=== PATIENT | male | born 1960 ===

== ENCOUNTER 2020-03-28 16:17 | Inpatient (IN) ==
[2020-03-28] MEDS ORDERED: ASPIRIN 325 MG ENTERIC COATED TABLET PO ONE ×2 (16:27→17:24)
[2020-03-28] MEDS ORDERED: DEXAMETHASONE 10 MG/ML VIAL IV ONE (16:35)
--- NOTE | 2020-03-28 16:45 | Emergency Department Note ---
HPI General Chief complaint: Shortness of Breath/Dyspnea Stated complaint: Increasingly worse SOB Time Seen by Provider: 03/28/20 16:27 Source: patient Mode of arrival: ambulatory Limitations: no limitations History of Present Illness HPI Narrative: Narrative: 59-year-old patient presented with a history of symptoms consistent with upper respiratory infection that began several days ago. Associated symptoms include cough. Specific risk factors that I considered in this patient's case were hypertension, diabetes, pre-existing cardiovascular disease, and pre-existing pulmonary disease. Patient also reports concern for fever/myalgias. Symptoms are currently reported as mild to moderate in severity and gradual and progressive over the past couple of days. Is exacerbated with coughing/not sleeping well. It is alleviated by rest. Patient has not been seen for this recently. Patient has had current immunizations. Patient denies any sore throat, neck pain, chest pain, shortness of breath, abdominal pain, back pain, numbness or tingling in the extremities, skin rash, chills, vomiting, or diarrhea no other pain or complaints at this time. The patient reports symptoms are similar to previous flu/URI. Patient reports they do not have sick contacts. Patient reports they have not been tested for COVID19. Related Data Home Medications Medication Instructions Recorded Confirmed metoprolol tartrate 100 mg tablet 100 mg PO QDAY 06/27/19 06/27/19 Allergies Allergy/AdvReac Type Severity Reaction Status Date / Time No Known Drug Allergies Allergy Unverified 06/27/19 13:50 Review of Systems ROS ROS Narrative: Narrative: All systems ED: reviewed and negative except as stated. PFSH Narrative Patient History Narrative: Narrative: Non-smoker Obesity Hypertension Medical/Surgical/Family History All Active Problems (Updated 03/28/20 @ 21:31 by Tulio Henao MD) COVID-19 (Acute) Acute respiratory failure with hypoxia (Acute) Social History Smoking Status: Current every day smoker Exam Narrative Narrative: General: Alert, interactive, appropriate Head: Atraumatic, normocephalic Eyes: Extraocular movements intact, sclera anicteric, no conjunctival injection Ears: Pinnae normal, no discharge Mouth: Oral mucosa moist, no acute swelling or evidence of infection Nares: No nasal discharge, patent bilaterally Neck: Trachea midline, full range of motion Chest: Symmetrical chest wall rise, patient noted to be tachypneic as well as hypoxic on presentation requiring multiple liters of O2 Cardiovascular: Patient with excellent perfusion to the extremities; with ta chycardia Skin: Patient without area of erythema, patient is without rash, no ascending lymphangitis or lymphadenopathy Extremities: Full range of motion joints, no obvious deformities Neuro: Alert, oriented x3, cranial nerves II through XII grossly intact, patient without lateralizing findings such as weakness, or abnormal reflexes Psychiatric: Normal affect, normal mood General Limitations: no limitations Course Vital Signs Vital signs: Vital Signs Temperature 98.7 F 03/28/20 16:18 Pulse Rate 117 H 03/28/20 16:18 Respiratory Rate 20 03/28/20 16:18 Blood Pressure 123/98 03/28/20 16:18 Pulse Oximetry (%) 88 L 03/28/20 16:18 Temperature 97.0 F 03/28/20 20:42 Pulse Rate 91 H 03/28/20 20:42 Respiratory Rate 16 03/28/20 20:42 Blood Pressure 143/86 03/28/20 20:42 Pulse Oximetry (%) 90 03/28/20 20:42 MDM MDM Narrative Medical decision making narrative: This patient is presenting with symptoms and findings consistent with acute hypoxic respiratory failure. They are toxic in appearance, requiring 3 L of oxygen. They are not immunocompromised. The differential diagnosis also included COVID19. Full septic work-up obtained including chest x-ray, blood cultures, CBC CMP lactic acid. Patient given aspirin as well as Decadron in the emergency department and supplemental oxygen. Patient had rapid Covid test positive. Significant features of this case are I did not give him sepsis protocol secondary to suggestion of Covid and I do not want to volume overload someone that could potentially be going into ARDS. Also didn't want to reflexively give someone antibiotics when they have a viral infection. Patient with hypoxia and tachypnea on presentation. At this point patient requires admission to the hospital. Patient has agreed to this. I discussed the case with Dr. Momin and the consensus medical opinion is to admit. Lab Data Result diagrams: 03/28/20 16:41 03/28/20 16:41 Labs: Lab Results 03/28/20 03/28/20 03/28/20 Range/Units 16:41 16:41 16:41 WBC 9.6 (4.5-11.0) K/mcL RBC 5.36 (4.50-5.90) M/mcL Hgb 16.4 (13.5-16.5) g/dL Hct 46.3 (41.0-55.0) % MCV 86.4 (80.0-100.0) fL MCH 30.6 (26.0-34.0) pg MCHC 35.4 (31.0-36.0) g/dL RDW 12.4 (11.5-14.5) % Plt Count 250 (140-440) K/mcL MPV 10.5 H (7.4-10.4) fL Neut % (Auto) 83.7 H (38.0-78.0) % Lymph % (Auto) 10.2 L (15.0-49.0) % Grimes % (Auto) 5.6 (1.0-12.0) % Eos % (Auto) 0.2 (0.0-7.0) % Baso % (Auto) 0.3 (0.0-2.0) % Lymph # (Auto) 0.98 L (1.50-4.80) K/mcL Grimes # (Auto) 0.54 (0.10-0.90) K/mcL Eos # (Auto) 0.02 (0.00-0.70) K/mcL Baso # (Auto) 0.03 (0.00-0.20) K/mcL Absolute Neutrophils 8.04 H (1.80-8.00) K/mcL ABG Methemoglobin (0.4-1.5) % VBG pH (7.32-7.42) U VBG pCO2 (41.0-51.0) mmHg VBG pO2 (25.0-40.0) mmHg VBG HCO3 (24.0-28.0) mmol/L VBG Total CO2 (25.0-29.0) mmol/L VBG O2 Saturation (40.0-70.0) % VBG Base Excess (-2-3) VBG Lactic Acid 2.9 H (0.5-2.0) mmol/L Carboxyhemoglobin (0.0-1.5) % THgb Total Hemoglobin (13.5-16.5) gm/Dl Sodium 128 L (133-145) mmol/L Potassium 3.8 (3.3-5.1) mmol/L Chloride 96 (96-108) mmol/L Carbon Dioxide 17 L (22-30) mmol/L Anion Gap 15.0 (8.0-16.0) BUN 20 (6-20) mg/dL Creatinine 1.1 (0.7-1.2) mg/dL POC Creatinine 1.1 (0.6-1.2) mg/dL GFR Calculation 72 Glucose 153 H (70-105) mg/dL Calcium 8.8 (8.6-10.4) mg/dL Ferritin (30.0-400.0) ng/mL Total Bilirubin 0.8 (0.1-1.0) mg/dL AST 54 H (<40) U/L ALT 62 H (<40) U/L Alkaline Phosphatase 53 (39-117) U/L Total Creatine Kinase (24-195) U/L Troponin T (<0.03) ng/mL C-Reactive Protein (0.03-0.80) mg/dL NT-Pro-B Natriuret Pep 28.6 (<125.0) pg/mL Total Protein 7.3 (5.9-8.4) gm/dL Albumin 3.7 (3.2-5.2) gm/dL Globulin 3.6 (2.2-3.7) gm/dL Albumin/Globulin Ratio 1.0 (1.0-2.3) SARS-CoV-2 (PCR) (Negative) 03/28/20 03/28/20 03/28/20 Range/Units 16:41 17:13 17:13 WBC (4.5-11.0) K/mcL RBC (4.50-5.90) M/mcL Hgb (13.5-16.5) g/dL Hct (41.0-55.0) % MCV (80.0-100.0) fL MCH (26.0-34.0) pg MCHC (31.0-36.0) g/dL RDW (11.5-14.5) % Plt Count (140-440) K/mcL MPV (7.4-10.4) fL Neut % (Auto) (38.0-78.0) % Lymph % (Auto) (15.0-49.0) % Grimes % (Auto) (1.0-12.0) % Eos % (Auto) (0.0-7.0) % Baso % (Auto) (0.0-2.0) % Lymph # (Auto) (1.50-4.80) K/mcL Grimes # (Auto) (0.10-0.90) K/mcL Eos # (Auto) (0.00-0.70) K/mcL Baso # (Auto) (0.00-0.20) K/mcL Absolute Neutrophils (1.80-8.00) K/mcL ABG Methemoglobin 0 L (0.4-1.5) % VBG pH 7.43 H (7.32-7.42) U VBG pCO2 32.7 L (41.0-51.0) mmHg VBG pO2 41.4 H (25.0-40.0) mmHg VBG HCO3 21.1 L (24.0-28.0) mmol/L VBG Total CO2 22.1 L (25.0-29.0) mmol/L VBG O2 Saturation 74.7 H (40.0-70.0) % VBG Base Excess -2 (-2-3) VBG Lactic Acid (0.5-2.0) mmol/L Carboxyhemoglobin 5.2 H (0.0-1.5) % THgb Total Hemoglobin 16.8 H (13.5-16.5) gm/Dl Sodium (133-145) mmol/L Potassium (3.3-5.1) mmol/L Chloride (96-108) mmol/L Carbon Dioxide (22-30) mmol/L Anion Gap (8.0-16.0) BUN (6-20) mg/dL Creatinine (0.7-1.2) mg/dL POC Creatinine (0.6-1.2) mg/dL GFR Calculation Glucose (70-105) mg/dL Calcium (8.6-10.4) mg/dL Ferritin > 2000.0 H (30.0-400.0) ng/mL Total Bilirubin (0.1-1.0) mg/dL AST (<40) U/L ALT (<40) U/L Alkaline Phosphatase (39-117) U/L Total Creatine Kinase 551 H (24-195) U/L Troponin T < 0.01 (<0.03) ng/mL C-Reactive Protein 6.10 H (0.03-0.80) mg/dL NT-Pro-B Natriuret Pep (<125.0) pg/mL Total Protein (5.9-8.4) gm/dL Albumin (3.2-5.2) gm/dL Globulin (2.2-3.7) gm/dL Albumin/Globulin Ratio (1.0-2.3) SARS-CoV-2 (PCR) (Negative) 03/28/20 Range/Units 17:19 WBC (4.5-11.0) K/mcL RBC (4.50-5.90) M/mcL Hgb (13.5-16.5) g/dL Hct (41.0-55.0) % MCV (80.0-100.0) fL MCH (26.0-34.0) pg MCHC (31.0-36.0) g/dL RDW (11.5-14.5) % Plt Count (140-440) K/mcL MPV (7.4-10.4) fL Neut % (Auto) (38.0-78.0) % Lymph % (Auto) (15.0-49.0) % Grimes % (Auto) (1.0-12.0) % Eos % (Auto) (0.0-7.0) % Baso % (Auto) (0.0-2.0) % Lymph # (Auto) (1.50-4.80) K/mcL Grimes # (Auto) (0.10-0.90) K/mcL Eos # (Auto) (0.00-0.70) K/mcL Baso # (Auto) (0.00-0.20) K/mcL Absolute Neutrophils (1.80-8.00) K/mcL ABG Methemoglobin (0.4-1.5) % VBG pH (7.32-7.42) U VBG pCO2 (41.0-51.0) mmHg VBG pO2 (25.0-40.0) mmHg VBG HCO3 (24.0-28.0) mmol/L VBG Total CO2 (25.0-29.0) mmol/L VBG O2 Saturation (40.0-70.0) % VBG Base Excess (-2-3) VBG Lactic Acid (0.5-2.0) mmol/L Carboxyhemoglobin (0.0-1.5) % THgb Total Hemoglobin (13.5-16.5) gm/Dl Sodium (133-145) mmol/L Potassium (3.3-5.1) mmol/L Chloride (96-108) mmol/L Carbon Dioxide (22-30) mmol/L Anion Gap (8.0-16.0) BUN (6-20) mg/dL Creatinine (0.7-1.2) mg/dL POC Creatinine (0.6-1.2) mg/dL GFR Calculation Glucose (70-105) mg/dL Calcium (8.6-10.4) mg/dL Ferritin (30.0-400.0) ng/mL Total Bilirubin (0.1-1.0) mg/dL AST (<40) U/L ALT (<40) U/L Alkaline Phosphatase (39-117) U/L Total Creatine Kinase (24-195) U/L Troponin T (<0.03) ng/mL C-Reactive Protein (0.03-0.80) mg/dL NT-Pro-B Natriuret Pep (<125.0) pg/mL Total Protein (5.9-8.4) gm/dL Albumin (3.2-5.2) gm/dL Globulin (2.2-3.7) gm/dL Albumin/Globulin Ratio (1.0-2.3) SARS-CoV-2 (PCR) Positive A (Negative) Discharge Plan Patient/Caregiver Discharge Instructions Pt seen by [facility]/PA only: No Clinical Impression: COVID-19, Acute respiratory failure with hypoxia Patient Disposition: Xfer As Inpt ([facility]) Discharge Date/Time: 03/28/20 20:15
[2020-03-28 16:46] LABS: POC Creatinine 1.1 mg/dL (0.6-1.2)
[2020-03-28 17:33] LABS: Basophils # (Auto) 0.03 K/mcL (0.00-0.20); Basophils % (Auto) 0.3 % (0.0-2.0); Eosinophils # (Auto) 0.02 K/mcL (0.00-0.70); Eosinophils % (Auto) 0.2 % (0.0-7.0); Hematocrit 46.3 % (41.0-55.0); Hemoglobin 16.4 g/dL (13.5-16.5); Lymphocytes # (Auto) 0.98 K/mcL (1.50-4.80); Lymphocytes % (Auto) 10.2 % (15.0-49.0); Mean Cell Volume 86.4 fL (80.0-100.0); Mean Corpuscular HGB Conc 35.4 g/dL (31.0-36.0); Mean Platelet Volume 10.5 fL (7.4-10.4); Monocytes # (Auto) 0.54 K/mcL (0.10-0.90); Monocytes % (Auto) 5.6 % (1.0-12.0); Neutrophils % (Auto) 83.7 % (38.0-78.0); Platelet Count 250 K/mcL (140-440); RBC 5.36 M/mcL (4.50-5.90); Red Cell Distribution Width 12.4 % (11.5-14.5); WBC 9.6 K/mcL (4.5-11.0)
[2020-03-28 17:43] LABS: proBNP 28.6 pg/mL (<125.0)
[2020-03-28 17:48] LABS: ABG Methemoglobin 0 % (0.4-1.5); Total Hemoglobin 16.8 gm/Dl (13.5-16.5); VBG Base Excess -2 (-2-3); VBG HCO3 21.1 mmol/L (24.0-28.0); VBG Oxygen Saturation 74.7 % (40.0-70.0); VBG PCO2 32.7 mmHg (41.0-51.0); VBG PH 7.43 U (7.32-7.42); VBG PO2 41.4 mmHg (25.0-40.0); VBG Total CO2 22.1 mmol/L (25.0-29.0)
[2020-03-28 17:50] LABS: ALT/SGPT 62 U/L (<40); AST/SGOT 54 U/L (<40); Albumin 3.7 gm/dL (3.2-5.2); Alkaline Phosphatase 53 U/L (39-117); Bilirubin,Total 0.8 mg/dL (0.1-1.0); Blood Urea Nitrogen 20 mg/dL (6-20); Calcium 8.8 mg/dL (8.6-10.4); Carbon Dioxide 17 mmol/L (22-30); Chloride 96 mmol/L (96-108); Globulin 3.6 gm/dL (2.2-3.7); Glomerular Filtration Rate 72; Glucose 153 mg/dL (70-105)
--- NOTE | 2020-03-28 18:35 | XRay Report ---
CLINICAL INFORMATION: covid COMPARISON: None. FINDINGS: Heart size, mediastinum and pulmonary vessels are normal. Small patchy right and moderate patchy left basilar infiltrate appreciated. No effusion IMPRESSION: Small patchy right and moderate patchy left bibasilar infiltrates Interpreted and Authenticated by: Parmjit Arredondo 03/28/20
[2020-03-28] MEDS ORDERED: REMDESIVIR 200 MG in 0.9 % SODIUM CHLORIDE 250 ML IV ONE ×2 (19:32→21:00)
--- NOTE | 2020-03-28 19:32 | Internal Med History&Physical ---
HPI History of Present Illness Patient information: Note initiated : 03/28/20 at 7:30 pm Service Date, if different from initiated Date: [] Patient: Yuri Colbert a 59 y/o M admitted on for Increasingly worse SOB. Chief Complaint: [] History of present illness: Mr. Colbert is a 59 year old M Who presents to the ED with shortness of breath since Sunday, he first developed a cough about a week and a half ago. Shortness of breath has worsened every day since Sunday. Denies fevers. The symptoms have continued to worsen. He was hypoxic in the mid 80s on oxygen when he first arrived in the ED. denies sick contacts. No history of COPD here other significant comorbidities other than history of hypertension and hyperlipidemia. Work-up in the ED showed a chest x-ray with bilateral infiltrates worse on the left. He was Covid positive. He was tachypneic and tachycardic. Requiring 3 L of oxygen in the ED with sats at 93%. Also found the ED mild hyponatremia. Elevated lactate of 2.9. And mild transaminitis. His only home medication is metoprolol which she did not take today. Review of Systems: None positives as above. Denies headache/fever/chills/nausea/vomiting/chest or abdominal pain/diarrhea. Many 10 point review of system reviewed negative PFSH PFSH Social History (Updated 03/28/20 @ 19:31 by Philippe Santos DO) additional history: Past medical history: HTN/HLD Surgical history: Hernia repair Finger tendon surgery Family she: Mother breast cancer Father with stroke and CAD Social: Denies smoking but does chew tobacco Denies alcohol use and lives home alone MEDS/ALLERGIES Home Medications and Allergies Home Medications Medication Instructions Recorded Confirmed Type metoprolol tartrate 100 mg tablet 100 mg PO QDAY 06/27/19 06/27/19 History Allergies Allergy/AdvReac Type Severity Reaction Status Date / Time No Known Drug Allergies Allergy Unverified 06/27/19 13:50 EXAM Constitutional Vitals: Temp Pulse Resp BP Pulse Ox 98.7 F 103 H 18 130/96 93 03/28/20 16:18 03/28/20 18:30 03/28/20 18:46 03/28/20 19:15 03/28/20 19:15 Exam: General: Alert, Awake, No acute Distress Eyes/N/T: EOMI, PERRL, Head/Neck: neck supple, normocephalic atraumatic CV: RRR, No murmurs, normal s1/s2 Pulm: Fine rales b/l, no wheezing Abd: soft, nontender, +BS x4 Ext: no clubbing/cyanosis/edema Neuro: Alert, no focal deficits, moves all extremities, CN 2-12 grossly intact, symmetrical strength b/l upper/lower, sensations intact b/l upper/lower Skin: warm/dry DATA Data Completed and Pending Labs: Labs from last 24 hours 03/28/20 03/28/20 03/28/20 17:19 17:13 16:41 WBC RBC Hgb Hct MCV MCH MCHC RDW Plt Count MPV Neut % (Auto) Lymph % (Auto) [place]ph[place] % (Auto) Eos % (Auto) Baso % (Auto) Lymph # (Auto) [place]phill # (Auto) Eos # (Auto) Baso # (Auto) Absolute Neutrophils ABG Methemoglobin 0 L VBG pH 7.43 H VBG pCO2 32.7 L VBG pO2 41.4 H VBG HCO3 21.1 L VBG Total CO2 22.1 L VBG O2 Saturation 74.7 H VBG Base Excess -2 VBG Lactic Acid Carboxyhemoglobin 5.2 H Total Hemoglobin 16.8 H Sodium Potassium Chloride Carbon Dioxide Anion Gap BUN Creatinine POC Creatinine GFR Calculation Glucose Calcium Total Bilirubin AST ALT Alkaline Phosphatase Troponin T < 0.01 NT-Pro-B Natriuret Pep Total Protein Albumin Globulin Albumin/Globulin Ratio SARS-CoV-2 (PCR) Positive A 03/28/20 03/28/20 03/28/20 16:41 16:41 16:41 WBC 9.6 RBC 5.36 Hgb 16.4 Hct 46.3 MCV 86.4 MCH 30.6 MCHC 35.4 RDW 12.4 Plt Count 250 MPV 10.5 H Neut % (Auto) 83.7 H Lymph % (Auto) 10.2 L [place] % (Auto) 5.6 Eos % (Auto) 0.2 Baso % (Auto) 0.3 Lymph # (Auto) 0.98 L [place]ph[place] # (Auto) 0.54 Eos # (Auto) 0.02 Baso # (Auto) 0.03 Absolute Neutrophils 8.04 H ABG Methemoglobin VBG pH VBG pCO2 VBG pO2 VBG HCO3 VBG Total CO2 VBG O2 Saturation VBG Base Excess VBG Lactic Acid 2.9 H Carboxyhemoglobin Total Hemoglobin Sodium 128 L Potassium 3.8 Chloride 96 Carbon Dioxide 17 L Anion Gap 15.0 BUN 20 Creatinine 1.1 POC Creatinine 1.1 GFR Calculation 72 Glucose 153 H Calcium 8.8 Total Bilirubin 0.8 AST 54 H ALT 62 H Alkaline Phosphatase 53 Troponin T NT-Pro-B Natriuret Pep 28.6 Total Protein 7.3 Albumin 3.7 Globulin 3.6 Albumin/Globulin Ratio 1.0 SARS-CoV-2 (PCR) A/P Narrative A/P Narrative: A: *Covid PNA: -RVP *Acute hypoxic respiratory failure: 2/2 above -currently 3L *Lactic acidosis: 2/2 hypoxia *Hyponatremia: 2/2 above *Transaminitis, mild: 2/2 above *HTN/HLD: On Toprol at home *Obesity: P: -O2 support -IS/Acapella, prn inhalers -Remdesivir/dexamethasone -daily self proning -Check procalcitonin, hold on antibiotics at this time -IVF tonight -Follow-up sodium - -ppx: Lovenox Full Code Time Spent With Patient Time: Total time spent is greater than 50% in coordination of care (as documented) at patient's floor/unit and/or counseling patient:
[2020-03-28] MEDS ORDERED: IPRATROPIUM/ALBUTEROL SULFATE 1 PUFF INHALER INH PRN (20:33)
[2020-03-28] MEDS ORDERED: REMDESIVIR 100 MG in 0.9 % SODIUM CHLORIDE 250 ML IV SCH (20:33)
[2020-03-28] MEDS ORDERED: MAGNESIUM SULFATE 2 GM/50 ML BAG IV PRN (20:33)
[2020-03-28] MEDS ORDERED: IPRATROPIUM/ALBUTEROL SULFATE 1 PUFF INHALER INH ONE (20:33)
[2020-03-28] MEDS ORDERED: ONDANSETRON 4 MG/2 ML VIAL IV PRN (20:33)
[2020-03-28] MEDS ORDERED: SENNOSIDES 1 TABLET PO PRN (20:33)
[2020-03-28] MEDS ORDERED: POTASSIUM CHLORIDE 20 MEQ TABLET PO PRN ×2 (20:33)
[2020-03-28] MEDS ORDERED: 0.9 % SODIUM CHLORIDE 1,000 ML IV SCH (20:33)
[2020-03-28] MEDS ORDERED: POTASSIUM CHLORIDE 40 MEQ in DEXTROSE 5% IN WATER 500 ML IV PRN (20:33)
[2020-03-28] MEDS ORDERED: POLYETHYLENE GLYCOL 3350 17 GM PACKET PO PRN (20:33)
[2020-03-28] MEDS ORDERED: ACETAMINOPHEN 325 MG TABLET PO PRN (20:33)
[2020-03-28 20:52] LABS: Creatine Kinase 551 U/L (24-195)
[2020-03-28 21:02] LABS: Ferritin > 2000.0 ng/mL (30.0-400.0)
[2020-03-28] MEDS: METOPROLOL SUCCINATE 50 MG TAB.XL.24H PO SCH (21:03)
[2020-03-28 21:30] LABS: INR 1.1 (0.9-1.1); Prothrombin Time 14.3 sec (11.9-14.5)
[2020-03-28] MEDS: 0.9 % SODIUM CHLORIDE 10 ML SYRINGE IV SCH (21:35)
[2020-03-29] MEDS: 0.9 % SODIUM CHLORIDE 10 ML SYRINGE IV SCH ×3 (05:37→20:03)
[2020-03-29 07:08] LABS: Basophils # (Auto) 0.03 K/mcL (0.00-0.20); Basophils % (Auto) 0.3 % (0.0-2.0); Eosinophils # (Auto) 0 K/mcL (0.00-0.70); Eosinophils % (Auto) 0 % (0.0-7.0); Hematocrit 45.6 % (41.0-55.0); Hemoglobin 15.7 g/dL (13.5-16.5); Lymphocytes # (Auto) 1.13 K/mcL (1.50-4.80); Mean Cell Volume 88.9 fL (80.0-100.0); Mean Corpuscular HGB Conc 34.4 g/dL (31.0-36.0); Mean Platelet Volume 10.6 fL (7.4-10.4); Monocytes # (Auto) 0.47 K/mcL (0.10-0.90); Neutrophils % (Auto) 82.7 % (38.0-78.0); Platelet Count 252 K/mcL (140-440); RBC 5.13 M/mcL (4.50-5.90); Red Cell Distribution Width 12.5 % (11.5-14.5); WBC 9.4 K/mcL (4.5-11.0)
[2020-03-29 07:21] LABS: ALT/SGPT 69 U/L (<40); AST/SGOT 55 U/L (<40); Albumin 3.5 gm/dL (3.2-5.2); Alkaline Phosphatase 54 U/L (39-117); Bilirubin,Direct 0.2 mg/dL (<0.3); Bilirubin,Total 0.6 mg/dL (0.1-1.0); Blood Urea Nitrogen 22 mg/dL (6-20); Calcium 8.9 mg/dL (8.6-10.4); Carbon Dioxide 20 mmol/L (22-30); Chloride 102 mmol/L (96-108); Globulin 3.4 gm/dL (2.2-3.7); Glomerular Filtration Rate 92; Glucose 123 mg/dL (70-105); Lactate Dehydrogenase 525 U/L (135-225); Phosphorous 3.3 mg/dL (2.5-4.5); Triglycerides 120 mg/dL (<150)
--- NOTE | 2020-03-29 07:38 | Internal Med Progress Note ---
SUBJECTIVE Subjective Patient information: Note initiated : 03/29/20 at 7:34 am Service Date, if different from initiated Date: [] Patient: Yuri Colbert a 59 y/o M admitted on 03/28/20 for Increasingly worse SOB. Chief Complaint: [] Interval history: History of present illness: Mr. Colbert is a 59 year old M Who presents to the ED with shortness of breath since Sunday, he first developed a cough about a week and a half ago. Shortness of breath has worsened every day since Sunday. Denies fevers. The symptoms have continued to wor sen. He was hypoxic in the mid 80s on oxygen when he first arrived in the ED. denies sick contacts. No history of COPD here other significant comorbidities other than history of hypertension and hyperlipidemia. Work-up in the ED showed a chest x-ray with bilateral infiltrates worse on the left. He was Covid positive. He was tachypneic and tachycardic. Requiring 3 L of oxygen in the ED with sats at 93%. Also found the ED mild hyponatremia. Elevated lactate of 2.9. And mild transaminitis. His only home medication is metoprolol which she did not take today. 03/29 Poor sleep last night. On 5 L oxygen mask this morning. However patient does feel better. He rates his cough is better and he says his shortness of breath is improved. Sodium is within normal limits today. Initial procalcitonin unremarkable. Afebrile. Continue holding on antibiotics and discontinue antiviral. Review of Systems: denies headache/fever/chills/nausea/vomiting/chest or abdominal pain/diarrhea. Otherwise see above. Constitutional Vitals: Vital Signs Temp Pulse Resp BP Pulse Ox 97 F 71 20 122/98 89 L 03/29/20 06:53 03/29/20 03:00 03/29/20 06:53 03/29/20 06:53 03/29/20 06:53 Period Temp Pulse Resp BP Sys/Zaldivar Pulse Ox Last 24 Hr 97 F-98.7 F 71-117 16-39 110-143/86-98 88-94 Intake and Output 03/28/20 03/29/20 03/29/20 21:59 05:59 13:59 Intake Total 550 Output Total 250 300 Balance 300 -300 Weight 110.79 kg Intake & Output: Intake & Output 03/28/20 03/29/20 03/29/20 21:59 05:59 13:59 Intake Total 550 Output Total 250 300 Balance 300 -300 Weight 110.79 kg Intake: IV 250 Veklury 200 mg In Sodium 250 Chloride 0.9% 250 ml @ 500 mls/ hr IV ONCE ONE Rx#:[id number] Oral 300 Output: Urine Catheter Amount 300 Void Amount 250 Other: Meal egg salad, cheese stick, fruit cup Percent of Meal Consumed 100% Urine Appearance Clear Clear Urine Color Tea Colored Straw Urine Odor Normal Exam: General: Alert, Awake, No acute Distress Eyes/N/T: EOMI, Head/Neck: neck supple, CV: RRR, 2/6 SM Pulm: b/l rhonchi and some fine rales, no wheezing Abd: soft, nontender, +BS x4 Ext: no clubbing/cyanosis/edema Neuro: Alert, no focal deficits, moves all extremities, Skin: warm/dry OBJ DATA Labs CBC & Chem 7: 03/29/20 05:29 03/29/20 05:29 Labs: Abnormal Lab Results 03/29/20 03/29/20 03/28/20 05:29 05:29 17:19 MPV 10.6 H Neut % (Auto) 82.7 H Lymph % (Auto) 12.0 L Lymph # (Auto) 1.13 L Absolute Neutrophils ABG Methemoglobin VBG pH VBG pCO2 VBG pO2 VBG HCO3 VBG Total CO2 VBG O2 Saturation VBG Lactic Acid Carboxyhemoglobin Total Hemoglobin Sodium Carbon Dioxide 20 L BUN 22 H Glucose 123 H Magnesium 2.7 H Ferritin AST 55 H ALT 69 H Lactate Dehydrogenase 525 H Total Creatine Kinase C-Reactive Protein Procalcitonin SARS-CoV-2 (PCR) Positive A 03/28/20 03/28/20 03/28/20 17:13 17:13 17:13 MPV Neut % (Auto) Lymph % (Auto) Lymph # (Auto) Absolute Neutrophils ABG Methemoglobin 0 L VBG pH 7.43 H VBG pCO2 32.7 L VBG pO2 41.4 H VBG HCO3 21.1 L VBG Total CO2 22.1 L VBG O2 Saturation 74.7 H VBG Lactic Acid Carboxyhemoglobin 5.2 H Total Hemoglobin 16.8 H Sodium Carbon Dioxide BUN Glucose Magnesium Ferritin > 2000.0 H AST ALT Lactate Dehydrogenase Total Creatine Kinase 551 H C-Reactive Protein 6.10 H Procalcitonin 0.14 H SARS-CoV-2 (PCR) 03/28/20 03/28/20 03/28/20 16:41 16:41 16:41 MPV 10.5 H Neut % (Auto) 83.7 H Lymph % (Auto) 10.2 L Lymph # (Auto) 0.98 L Absolute Neutrophils 8.04 H ABG Methemoglobin VBG pH VBG pCO2 VBG pO2 VBG HCO3 VBG Total CO2 VBG O2 Saturation VBG Lactic Acid 2.9 H Carboxyhemoglobin Total Hemoglobin Sodium 128 L Carbon Dioxide 17 L BUN Glucose 153 H Magnesium Ferritin AST 54 H ALT 62 H Lactate Dehydrogenase Total Creatine Kinase C-Reactive Protein Procalcitonin SARS-CoV-2 (PCR) Meds: Medications Acetaminophen (Tylenol) 650 mg PO Q6HP PRN PRN Reason: PAIN/FEVER > 101 Albuterol/Ipratropium (Combivent) 2 puff INH QIDP PRN PRN Reason: dyspnea Dexamethasone (Decadron) 6 mg PO DAILY [facility] Enoxaparin Sodium (Lovenox) 40 mg SQ DAILY [facility] Potassium Chloride 40 meq/ (Dextrose) 520 mls @ 130 mls/hr IV UD PRN PRN Reason: Potassium < 3 Magnesium Sulfate (Magnesium Sulfate) 2 gm in 50 mls @ 50 mls/hr IV UD PRN PRN Reason: Magnesium </= 1.6 REMDESIVIR 100 mg/ Sodium (Chloride) 250 mls @ 500 mls/hr IV Q24H [facility] Stop: 04/01/20 14:29 Metoprolol Succinate (Toprol Xl) 100 mg PO DAILY [facility] Last Admin: 03/28/20 21:03 Dose: 100 mg Documented by: Ondansetron HCl (Zofran) 4 mg IV Q4HP PRN PRN Reason: Nausea And Vomiting Polyethylene Glycol (Miralax) 17 gm PO DAILYP PRN PRN Reason: Constipation Potassium Chloride (Kdur) 40 meq PO UD PRN PRN Reason: Potssium is 3-3.5 Potassium Chloride (Kdur) 40 meq PO UD PRN PRN Reason: Potassium < 3 Senna (Senokot) 2 tab PO DAILYP PRN PRN Reason: Constipation Sodium Chloride (Saline Flush) 10 ml IV Q8 [facility] Last Admin: 03/29/20 05:37 Dose: Not Given Documented by: ABG Interpretation ABG results: 03/28/20 17:13 ABG Methemoglobin 0 L VBG pH 7.43 H VBG pCO2 32.7 L VBG pO2 41.4 H VBG HCO3 21.1 L VBG Total CO2 22.1 L VBG O2 Saturation 74.7 H VBG Base Excess -2 A/P Narrative A/P Narrative: A: *COVID PNA: -RVP neg *Acute hypoxic respiratory failure: 2/2 above -currently on 5L Oxymask *Lactic acidosis: 2/2 hypoxia *Hyponatremia: 2/2 above, resolved *Transaminitis, mild: 2/2 above *HTN/HLD: On Toprol at home *Obesity: P: -O2 support, wean as able -IS/Acapella, prn inhalers -Remdesivir/dexamethasone -daily self proning -hold on antibiotics at this time -s/p IVF -ppx: Lovenox Full Code Time Spent With Patient Time: Total time spent is greater than 50% in coordination of care (as documented) at patient's floor/unit and/or counseling patient: QUALITY VTE Deep Vein Thrombosis/Pulmonary Embolism Present on Admission: No
[2020-03-29] MEDS: ENOXAPARIN 40 MG/0.4 ML SYRINGE SQ SCH (08:31)
[2020-03-29] MEDS: DEXAMETHASONE 4 MG TABLET PO SCH (08:32)
[2020-03-29] MEDS: METOPROLOL SUCCINATE 50 MG TAB.XL.24H PO SCH (08:32)
[2020-03-29] MEDS ORDERED: ASPIRIN 325 MG ENTERIC COATED TABLET PO ONE (09:40)
[2020-03-29] MEDS: IPRATROPIUM/ALBUTEROL SULFATE 1 PUFF INHALER INH SCH ×2 (10:12→20:03)
[2020-03-29] MEDS: REMDESIVIR 100 MG in 0.9 % SODIUM CHLORIDE 250 ML IV SCH (14:41)
[2020-03-30] MEDS: 0.9 % SODIUM CHLORIDE 10 ML SYRINGE IV SCH ×3 (05:08→21:46)
[2020-03-30 07:14] LABS: ALT/SGPT 63 U/L (<40); AST/SGOT 40 U/L (<40); Albumin 3.5 gm/dL (3.2-5.2); Albumin/Globulin Ratio 1.2 (1.0-2.3); Alkaline Phosphatase 53 U/L (39-117); Bilirubin,Direct < 0.2 mg/dL (<0.3); Bilirubin,Total 0.5 mg/dL (0.1-1.0); Blood Urea Nitrogen 26 mg/dL (6-20); Carbon Dioxide 22 mmol/L (22-30); Chloride 102 mmol/L (96-108); Globulin 2.9 gm/dL (2.2-3.7); Glomerular Filtration Rate 92; Glucose 96 mg/dL (70-105); Lactate Dehydrogenase 470 U/L (135-225); Phosphorous 3.3 mg/dL (2.5-4.5); Triglycerides 70 mg/dL (<150); Uric Acid 5.7 mg/dL (2.5-8.0)
[2020-03-30 07:17] LABS: Ferritin > 2000.0 ng/mL (30.0-400.0)
--- NOTE | 2020-03-30 07:42 | Internal Med Progress Note ---
SUBJECTIVE Subjective Patient information: Note initiated : 03/30/20 at 7:38 am Service Date, if different from initiated Date: [] Patient: Yuri Colbert a 59 y/o M admitted on 03/28/20 for Increasingly worse SOB. Chief Complaint: [] Interval history: History of present illness: Mr. Colbert is a 59 year old M Who presents to the ED with shortness of breath since Sunday, he first developed a cough about a week and a half ago. Shortness of breath has worsened every day since Sunday. Denies fevers. The symptoms have continued to wor sen. He was hypoxic in the mid 80s on oxygen when he first arrived in the ED. denies sick contacts. No history of COPD here other significant comorbidities other than history of hypertension and hyperlipidemia. Work-up in the ED showed a chest x-ray with bilateral infiltrates worse on the left. He was Covid positive. He was tachypneic and tachycardic. Requiring 3 L of oxygen in the ED with sats at 93%. Also found the ED mild hyponatremia. Elevated lactate of 2.9. And mild transaminitis. His only home medication is metoprolol which she did not take today. 03/29 Poor sleep last night. On 5 L oxygen mask this morning. However patient does feel better. He rates his cough is better and he says his shortness of breath is improved. Sodium is within normal limits today. Initial procalcitonin unremarkable. Afebrile. Continue holding on antibiotics and discontinue antiviral. 03/30 Patient was on 6 L of oxygen last night. However patient says he feels better and he feels his shortness of breath is improving. Also slept well. Has a minimal cough. Nurse was able to turn down 4 L this morning. Review of Systems: denies headache/fever/chills/nausea/vomiting/chest or abdominal pain. Otherwise see above. Constitutional Vitals: Vital Signs Temp Pulse Resp BP Pulse Ox 97.1 F 67 24 H 138/91 94 03/30/20 07:36 03/30/20 07:36 03/30/20 07:36 03/30/20 07:36 03/30/20 07:36 Period Temp Pulse Resp BP Sys/Zaldivar Pulse Ox Last 24 Hr 96.8 F-97.5 F 67-78 20-32 134-145/85-93 90-98 Intake and Output 03/29/20 03/30/20 03/30/20 21:59 05:59 13:59 Intake Total 900 1000 Output Total 200 0 Balance 700 1000 Weight 113.398 kg Intake & Output: Intake & Output 03/29/20 03/30/20 03/30/20 21:59 05:59 13:59 Intake Total 900 1000 Output Total 200 0 Balance 700 1000 Weight 113.398 kg Intake: Oral 900 1000 Output: Void Amount 200 0 Other: Stool Size Moderate Stool Color Brown Stool Consistency Loose # Voids 1 # of times incontinent of 1 Bowels Exam: General: Alert, Awake, No acute Distress Eyes/N/T: EOMI, Head/Neck: neck supple, CV: RRR, 2/6 SM Pulm: b/l rhonchi/rales, no wheezing Abd: soft, nontender, +BS x4 Ext: no clubbing/cyanosis/edema Neuro: Alert, no focal deficits, moves all extremities, Skin: warm/dry OBJ DATA Labs CBC & Chem 7: 03/29/20 05:29 03/30/20 05:26 Labs: Abnormal Lab Results 03/30/20 03/30/20 03/30/20 05:26 05:26 05:26 MPV Neut % (Auto) Lymph % (Auto) Lymph # (Auto) Absolute Neutrophils ABG Methemoglobin VBG pH VBG pCO2 VBG pO2 VBG HCO3 VBG Total CO2 VBG O2 Saturation VBG Lactic Acid Carboxyhemoglobin Total Hemoglobin Sodium Carbon Dioxide BUN 26 H Glucose Magnesium Ferritin > 2000.0 H AST 40 H ALT 63 H Lactate Dehydrogenase 470 H Total Creatine Kinase 380 H C-Reactive Protein 2.80 H Procalcitonin SARS-CoV-2 (PCR) 03/29/20 03/29/20 03/28/20 05:29 05:29 17:19 MPV 10.6 H Neut % (Auto) 82.7 H Lymph % (Auto) 12.0 L Lymph # (Auto) 1.13 L Absolute Neutrophils ABG Methemoglobin VBG pH VBG pCO2 VBG pO2 VBG HCO3 VBG Total CO2 VBG O2 Saturation VBG Lactic Acid Carboxyhemoglobin Total Hemoglobin Sodium Carbon Dioxide 20 L BUN 22 H Glucose 123 H Magnesium 2.7 H Ferritin AST 55 H ALT 69 H Lactate Dehydrogenase 525 H Total Creatine Kinase C-Reactive Protein Procalcitonin SARS-CoV-2 (PCR) Positive A 03/28/20 03/28/20 03/28/20 17:13 17:13 17:13 MPV Neut % (Auto) Lymph % (Auto) Lymph # (Auto) Absolute Neutrophils ABG Methemoglobin 0 L VBG pH 7.43 H VBG pCO2 32.7 L VBG pO2 41.4 H VBG HCO3 21.1 L VBG Total CO2 22.1 L VBG O2 Saturation 74.7 H VBG Lactic Acid Carboxyhemoglobin 5.2 H Total Hemoglobin 16.8 H Sodium Carbon Dioxide BUN Glucose Magnesium Ferritin > 2000.0 H AST ALT Lactate Dehydrogenase Total Creatine Kinase 551 H C-Reactive Protein 6.10 H Procalcitonin 0.14 H SARS-CoV-2 (PCR) 03/28/20 03/28/20 03/28/20 16:41 16:41 16:41 MPV 10.5 H Neut % (Auto) 83.7 H Lymph % (Auto) 10.2 L Lymph # (Auto) 0.98 L Absolute Neutrophils 8.04 H ABG Methemoglobin VBG pH VBG pCO2 VBG pO2 VBG HCO3 VBG Total CO2 VBG O2 Saturation VBG Lactic Acid 2.9 H Carboxyhemoglobin Total Hemoglobin Sodium 128 L Carbon Dioxide 17 L BUN Glucose 153 H Magnesium Ferritin AST 54 H ALT 62 H Lactate Dehydrogenase Total Creatine Kinase C-Reactive Protein Procalcitonin SARS-CoV-2 (PCR) Meds: Medications Acetaminophen (Tylenol) 650 mg PO Q6HP PRN PRN Reason: PAIN/FEVER > 101 Albuterol/Ipratropium (Combivent) 2 puff INH QIDP PRN PRN Reason: dyspnea Albuterol/Ipratropium (Combivent) 2 puff INH BID [facility] Last Admin: 03/29/20 20:03 Dose: 2 puff Documented by: Dexamethasone (Decadron) 6 mg PO DAILY [facility] Last Admin: 03/29/20 08:32 Dose: 6 mg Documented by: Enoxaparin Sodium (Lovenox) 40 mg SQ DAILY [facility] Last Admin: 03/29/20 08:31 Dose: 40 mg Documented by: Potassium Chloride 40 meq/ (Dextrose) 520 mls @ 130 mls/hr IV UD PRN PRN Reason: Potassium < 3 Magnesium Sulfate (Magnesium Sulfate) 2 gm in 50 mls @ 50 mls/hr IV UD PRN PRN Reason: Magnesium </= 1.6 REMDESIVIR 100 mg/ Sodium (Chloride) 250 mls @ 500 mls/hr IV Q24H [facility] Stop: 04/01/20 14:29 Last Admin: 03/29/20 14:41 Dose: 500 mls/hr Documented by: Metoprolol Succinate (Toprol Xl) 100 mg PO DAILY [facility] Last Admin: 03/29/20 08:32 Dose: 100 mg Documented by: Ondansetron HCl (Zofran) 4 mg IV Q4HP PRN PRN Reason: Nausea And Vomiting Polyethylene Glycol (Miralax) 17 gm PO DAILYP PRN PRN Reason: Constipation Potassium Chloride (Kdur) 40 meq PO UD PRN PRN Reason: Potssium is 3-3.5 Potassium Chloride (Kdur) 40 meq PO UD PRN PRN Reason: Potassium < 3 Senna (Senokot) 2 tab PO DAILYP PRN PRN Reason: Constipation Sodium Chloride (Saline Flush) 10 ml IV Q8 [facility] Last Admin: 03/30/20 05:08 Dose: 10 ml Documented by: ABG Interpretation ABG results: 03/28/20 17:13 ABG Methemoglobin 0 L VBG pH 7.43 H VBG pCO2 32.7 L VBG pO2 41.4 H VBG HCO3 21.1 L VBG Total CO2 22.1 L VBG O2 Saturation 74.7 H VBG Base Excess -2 A/P Narrative A/P Narrative: A: *COVID PNA: -RVP neg, crp improving, PCT low *Acute hypoxic respiratory failure: 2/2 above -6L Oxymask last night, now on 4L *Lactic acidosis: 2/2 hypoxia *Hyponatremia: 2/2 above, resolved *Transaminitis, mild: 2/2 above, improving *mild elevated cpk: 2/2 above, improving *HTN/HLD: On Toprol at home *Obesity: P: -O2 support, wean as able -IS/Acapella, prn inhalers -Remdesivir/dexamethasone -daily self proning -monitor for need to start antibiotics - -ppx: Lovenox Full Code Time Spent With Patient Time: Total time spent is greater than 50% in coordination of care (as documented) at patient's floor/unit and/or counseling patient: QUALITY VTE Deep Vein Thrombosis/Pulmonary Embolism Present on Admission: No
[2020-03-30] MEDS: METOPROLOL SUCCINATE 50 MG TAB.XL.24H PO SCH (08:43)
[2020-03-30] MEDS: ZINC SULFATE 50 MG CAPSULE PO SCH (08:44)
[2020-03-30] MEDS: DEXAMETHASONE 4 MG TABLET PO SCH (08:44)
[2020-03-30] MEDS: IPRATROPIUM/ALBUTEROL SULFATE 1 PUFF INHALER INH SCH ×2 (08:44→21:46)
[2020-03-30] MEDS: ENOXAPARIN 40 MG/0.4 ML SYRINGE SQ SCH (08:44)
--- NOTE | 2020-03-30 08:52 | XRay Report ---
CLINICAL INFORMATION: f/u covid pna COMPARISON: 03/28/2020 FINDINGS: Mild cardiomegaly is unchanged. Mediastinum and pulmonary vessels are normal. Moderate patchy left and small patchy right basilar infiltrates are much better aerated on today's study. No effusions IMPRESSION: Moderate patchy left basilar and smaller patchy right basilar infiltrates have improved considerably since chest x-ray two days prior Interpreted and Authenticated by: Parmjit Arredondo 03/30/20
[2020-03-30] MEDS: AZITHROMYCIN 500 MG in DEXTROSE 5% IN WATER 250 ML IV SCH (12:04)
[2020-03-30] MEDS: REMDESIVIR 100 MG in 0.9 % SODIUM CHLORIDE 250 ML IV SCH (14:35)
--- NOTE | 2020-03-31 07:39 | Internal Med Progress Note ---
SUBJECTIVE Subjective Patient information: Note initiated : 03/31/20 at 7:37 am Service Date, if different from initiated Date: [] Patient: Yuri Colbert a 59 y/o M admitted on 03/28/20 for Increasingly worse SOB. Chief Complaint: [] Interval history: History of present illness: Mr. Colbert is a 59 year old M Who presents to the ED with shortness of breath since Sunday, he first developed a cough about a week and a half ago. Shortness of breath has worsened every day since Sunday. Denies fevers. The symptoms have continued to wor sen. He was hypoxic in the mid 80s on oxygen when he first arrived in the ED. denies sick contacts. No history of COPD here other significant comorbidities other than history of hypertension and hyperlipidemia. Work-up in the ED showed a chest x-ray with bilateral infiltrates worse on the left. He was Covid positive. He was tachypneic and tachycardic. Requiring 3 L of oxygen in the ED with sats at 93%. Also found the ED mild hyponatremia. Elevated lactate of 2.9. And mild transaminitis. His only home medication is metoprolol which she did not take today. 03/29 Poor sleep last night. On 5 L oxygen mask this morning. However patient does feel better. He rates his cough is better and he says his shortness of breath is improved. Sodium is within normal limits today. Initial procalcitonin unremarkable. Afebrile. Continue holding on antibiotics and discontinue antiviral. 03/30 Patient was on 6 L of oxygen last night. However patient says he feels better and he feels his shortness of breath is improving. Also slept well. Has a minimal cough. Nurse was able to turn down 4 L this morning. 03/31 On 2 L of oxygen since yesterday afternoon. Patient continues to feel better. Occasional cough, shortness of breath improving review of Systems: denies headache/fever/chills/nausea/vomiting/chest or abdominal pain. Otherwise see above. Constitutional Vitals: Vital Signs Temp Pulse Resp BP Pulse Ox 97.8 F 71 24 H 133/87 94 03/31/20 07:05 03/31/20 07:05 03/31/20 07:05 03/31/20 07:05 03/31/20 07:05 Period Temp Pulse Resp BP Sys/Zaldivar Pulse Ox Last 24 Hr 97.1 F-97.8 F 71-84 24-36 121-142/87-94 91-96 Intake and Output 03/30/20 03/31/20 03/31/20 21:59 05:59 13:59 Intake Total 240 450 Output Total 525 Balance 240 -75 Weight 113.852 kg Intake & Output: Intake & Output 03/30/20 03/31/20 03/31/20 21:59 05:59 13:59 Intake Total 240 450 Output Total 525 Balance 240 -75 Weight 113.852 kg Intake: Oral 240 450 Output: Void Amount 525 Other: Meal Lunch Percent of Meal Consumed 100% Feeding Ability Independent Stool Size Moderate Stool Color Brown Stool Consistency Soft Exam: General: Alert, Awake, No acute Distress Eyes/N/T: EOMI, Head/Neck: neck supple, CV: RRR, 2/6 SM Pulm: b/l rhonchi/fine rales, no wheezing Abd: soft, nontender, +BS x4 Ext: no clubbing/cyanosis/edema Neuro: Alert, no focal deficits, moves all extremities, Skin: warm/dry OBJ DATA Labs CBC & Chem 7: 03/29/20 05:29 03/30/20 05:26 Labs: Abnormal Lab Results 03/30/20 03/30/20 03/30/20 05:26 05:26 05:26 MPV Neut % (Auto) Lymph % (Auto) Lymph # (Auto) Absolute Neutrophils ABG Methemoglobin VBG pH VBG pCO2 VBG pO2 VBG HCO3 VBG Total CO2 VBG O2 Saturation VBG Lactic Acid Carboxyhemoglobin Total Hemoglobin Sodium Carbon Dioxide BUN 26 H Glucose Magnesium Ferritin > 2000.0 H AST 40 H ALT 63 H Lactate Dehydrogenase 470 H Total Creatine Kinase C-Reactive Protein 2.80 H Procalcitonin 0.10 H SARS-CoV-2 (PCR) 03/30/20 03/29/20 03/29/20 05:26 05:29 05:29 MPV 10.6 H Neut % (Auto) 82.7 H Lymph % (Auto) 12.0 L Lymph # (Auto) 1.13 L Absolute Neutrophils ABG Methemoglobin VBG pH VBG pCO2 VBG pO2 VBG HCO3 VBG Total CO2 VBG O2 Saturation VBG Lactic Acid Carboxyhemoglobin Total Hemoglobin Sodium Carbon Dioxide 20 L BUN 22 H Glucose 123 H Magnesium 2.7 H Ferritin AST 55 H ALT 69 H Lactate Dehydrogenase 525 H Total Creatine Kinase 380 H C-Reactive Protein Procalcitonin SARS-CoV-2 (PCR) 03/28/20 03/28/20 03/28/20 17:19 17:13 17:13 MPV Neut % (Auto) Lymph % (Auto) Lymph # (Auto) Absolute Neutrophils ABG Methemoglobin VBG pH VBG pCO2 VBG pO2 VBG HCO3 VBG Total CO2 VBG O2 Saturation VBG Lactic Acid Carboxyhemoglobin Total Hemoglobin Sodium Carbon Dioxide BUN Glucose Magnesium Ferritin > 2000.0 H AST ALT Lactate Dehydrogenase Total Creatine Kinase 551 H C-Reactive Protein 6.10 H Procalcitonin 0.14 H SARS-CoV-2 (PCR) Positive A 03/28/20 03/28/20 03/28/20 17:13 16:41 16:41 MPV Neut % (Auto) Lymph % (Auto) Lymph # (Auto) Absolute Neutrophils ABG Methemoglobin 0 L VBG pH 7.43 H VBG pCO2 32.7 L VBG pO2 41.4 H VBG HCO3 21.1 L VBG Total CO2 22.1 L VBG O2 Saturation 74.7 H VBG Lactic Acid 2.9 H Carboxyhemoglobin 5.2 H Total Hemoglobin 16.8 H Sodium 128 L Carbon Dioxide 17 L BUN Glucose 153 H Magnesium Ferritin AST 54 H ALT 62 H Lactate Dehydrogenase Total Creatine Kinase C-Reactive Protein Procalcitonin SARS-CoV-2 (PCR) 03/28/20 16:41 MPV 10.5 H Neut % (Auto) 83.7 H Lymph % (Auto) 10.2 L Lymph # (Auto) 0.98 L Absolute Neutrophils 8.04 H ABG Methemoglobin VBG pH VBG pCO2 VBG pO2 VBG HCO3 VBG Total CO2 VBG O2 Saturation VBG Lactic Acid Carboxyhemoglobin Total Hemoglobin Sodium Carbon Dioxide BUN Glucose Magnesium Ferritin AST ALT Lactate Dehydrogenase Total Creatine Kinase C-Reactive Protein Procalcitonin SARS-CoV-2 (PCR) Meds: Medications Acetaminophen (Tylenol) 650 mg PO Q6HP PRN PRN Reason: PAIN/FEVER > 101 Albuterol/Ipratropium (Combivent) 2 puff INH QIDP PRN PRN Reason: dyspnea Albuterol/Ipratropium (Combivent) 2 puff INH BID [facility] Last Admin: 03/30/20 21:46 Dose: 2 puff Documented by: Dexamethasone (Decadron) 6 mg PO DAILY [facility] Last Admin: 03/30/20 08:44 Dose: 6 mg Documented by: Enoxaparin Sodium (Lovenox) 40 mg SQ DAILY [facility] Last Admin: 03/30/20 08:44 Dose: 40 mg Documented by: Potassium Chloride 40 meq/ (Dextrose) 520 mls @ 130 mls/hr IV UD PRN PRN Reason: Potassium < 3 Magnesium Sulfate (Magnesium Sulfate) 2 gm in 50 mls @ 50 mls/hr IV UD PRN PRN Reason: Magnesium </= 1.6 REMDESIVIR 100 mg/ Sodium (Chloride) 250 mls @ 500 mls/hr IV Q24H [facility] Stop: 04/01/20 14:29 Last Admin: 03/30/20 14:35 Dose: 500 mls/hr Documented by: Azithromycin 500 mg/ Dextrose 250 mls @ 250 mls/hr IV Q24H [facility]; Protocol Stop: 04/01/20 11:59 Last Admin: 03/30/20 12:04 Dose: 250 mls/hr Documented by: Metoprolol Succinate (Toprol Xl) 100 mg PO DAILY [facility] Last Admin: 03/30/20 08:43 Dose: 100 mg Documented by: Ondansetron HCl (Zofran) 4 mg IV Q4HP PRN PRN Reason: Nausea And Vomiting Polyethylene Glycol (Miralax) 17 gm PO DAILYP PRN PRN Reason: Constipation Potassium Chloride (Kdur) 40 meq PO UD PRN PRN Reason: Potssium is 3-3.5 Potassium Chloride (Kdur) 40 meq PO UD PRN PRN Reason: Potassium < 3 Senna (Senokot) 2 tab PO DAILYP PRN PRN Reason: Constipation Sodium Chloride (Saline Flush) 10 ml IV Q8 [facility] Last Admin: 03/30/20 21:46 Dose: 10 ml Documented by: Zinc Sulfate (Zinc) 50 mg PO DAILY [facility] Last Admin: 03/30/20 08:44 Dose: 50 mg Documented by: ABG Interpretation ABG results: 03/28/20 17:13 ABG Methemoglobin 0 L VBG pH 7.43 H VBG pCO2 32.7 L VBG pO2 41.4 H VBG HCO3 21.1 L VBG Total CO2 22.1 L VBG O2 Saturation 74.7 H VBG Base Excess -2 A/P Narrative A/P Narrative: A: *COVID PNA: -RVP neg, crp improving, PCT low *Acute hypoxic respiratory failure: 2/2 above -down to 2L NC from 6L Oxymask *Lactic acidosis: 2/2 hypoxia *Hyponatremia: 2/2 above, resolved *Transaminitis, mild: 2/2 above, improving *mild elevated cpk: 2/2 above, improving *HTN/HLD: On Toprol at home *Obesity: P: -O2 support, wean as able -IS/Acapella, prn inhalers -Remdesivir/dexamethasone -daily self proning -monitor for need to start antibiotics - -ppx: Lovenox Full Code Time Spent With Patient Time: Total time spent is greater than 50% in coordination of care (as documente d) at patient's floor/unit and/or counseling patient: QUALITY VTE Deep Vein Thrombosis/Pulmonary Embolism Present on Admission: No
[2020-03-31] MEDS ORDERED: FUROSEMIDE 20 MG/2 ML VIAL IV ONE (08:21)
[2020-03-31] MEDS: ENOXAPARIN 40 MG/0.4 ML SYRINGE SQ SCH (09:10)
[2020-03-31] MEDS: 0.9 % SODIUM CHLORIDE 10 ML SYRINGE IV SCH ×3 (09:10→21:23)
[2020-03-31] MEDS: DEXAMETHASONE 4 MG TABLET PO SCH (09:10)
[2020-03-31] MEDS: METOPROLOL SUCCINATE 50 MG TAB.XL.24H PO SCH (09:10)
[2020-03-31] MEDS: ZINC SULFATE 50 MG CAPSULE PO SCH (09:10)
[2020-03-31] MEDS: AZITHROMYCIN 500 MG in DEXTROSE 5% IN WATER 250 ML IV SCH (09:11)
[2020-03-31] MEDS: IPRATROPIUM/ALBUTEROL SULFATE 1 PUFF INHALER INH SCH ×2 (09:11→21:23)
--- NOTE | 2020-03-31 10:23 | Discharge Summary ---
Discharge Provider Provider Patient information: Note initiated : 03/31/20 at 10:21 am Service Date, if different from initiated Date: [] Patient: Yuri Colbert 59 y/o M admitted on 03/28/20 for Increasingly worse SOB. Chief Complaint: [] Date of admission: 03/28/20 20:15 Discharge date: 04/01/20 Primary care physician: Jelly Cerda Consults: 03/28/20 Consult to Physician [CONS] Stat Comment: Consulting Provider: Philippe Santos Reason For Exam: Physician to Consult Discharge Meds Discharge Medications Home Medications metoprolol tartrate 100 mg tablet 100 mg PO HS 06/27/19 [History Confirmed Last Taken 03/25/20 20:00] COURSE Hospital Course Hospital course: History of present illness: Mr. Colbert is a 59 year old M Who presents to the ED with shortness of breath since Sunday, he first developed a cough about a week and a half ago. Shortness of breath has worsened every day since Sunday. Denies fevers. The symptoms have continued to worsen. He was hypoxic in the mid 80s on oxygen when he first arrived in the ED. denies sick contacts. No history of COPD here other significant comorbidities other than history of hypertension and hyperlipidemia. Work-up in the ED showed a chest x-ray with bilateral infiltrates worse on the left. He was Covid positive. He was tachypneic and tachycardic. Requiring 3 L of oxygen in the ED with sats at 93%. Also found the ED mild hyponatremia. Elevated lactate of 2.9. And mild transaminitis. His only home medication is metoprolol which she did not take today. 03/29 Poor sleep last night. On 5 L oxygen mask this morning. However patient does feel better. He rates his cough is better and he says his shortness of breath is improved. Sodium is within normal limits today. Initial procalcitonin unremarkable. Afebrile. Continue holding on antibiotics and discontinue antiviral. 03/30 Patient was on 6 L of oxygen last night. However patient says he feels better and he feels his shortness of breath is improving. Also slept well. Has a minimal cough. Nurse was able to turn down 4 L this morning. 03/31 On 2 L of oxygen since yesterday afternoon. Patient continues to feel better. Occasional cough, shortness of breath improving 04/01 Improving significantly. He is now on room air and ambulating in the room without descending. Patient stable for discharge. A: *COVID PNA: *Acute hypoxic respiratory failure: 2/2 above *Lactic acidosis: 2/2 hypoxia *Hyponatremia: 2/2 above, resolved *Transaminitis, mild: 2/2 above, improving *mild elevated cpk: 2/2 above, improving *HTN/HLD: On Toprol at home *Obesity: Discharge diagnosis: Covid pneumonia acute hypoxic respiratory failure hyponatremia transaminiti Secondary discharge diagnosis: HTN obesity Time Spent with Patient Time attestation: Total time spent providing and/or coordinating discharge services: Time spent: Greater than 30 minutes EXAM Constitutional Vitals: Temp Pulse Resp BP Pulse Ox 97.8 F 71 24 H 133/87 94 03/31/20 07:05 03/31/20 07:05 03/31/20 07:05 03/31/20 07:05 03/31/20 07:05 Discharge Data Data Completed and Pending Labs on day of discharge: Labs from last 24 hours 03/31/20 03/31/20 03/31/20 05:47 05:47 05:47 WBC Pending RBC Pending Hgb Pending Hct Pending MCV Pending MCH Pending MCHC Pending RDW Pending Plt Count Pending MPV Pending Neut % (Auto) Pending Sodium Pending Potassium Pending Chloride Pending Carbon Dioxide Pending Anion Gap Pending BUN Pending Creatinine Pending GFR Calculation Pending Glucose Pending Calcium Pending Ferritin Pending Preliminary micro results at discharge 03/28/20 17:30 Blood Culture - Preliminary Blood 03/28/20 17:13 Blood Culture - Preliminary Blood Discharge Plan Patient/Caregiver Discharge Instructions Activity: increase activity as tolerated Diet: Regular Diet Prescriptions: Continued metoprolol tartrate 100 mg tablet 100 mg PO HS RF: 0 Follow Up Plan Follow up with: Jelly Cerda MD [Primary Care Provider] - Patient Disposition: Home, Self-Care Prognosis: Fair Discharge Orders: Discharge Order (Routine); Ordered 04/01/20 Ordered By: Philippe Santos [facility] VTE Deep Vein Thrombosis/Pulmonary Embolism Present on Admission: No
[2020-03-31 13:40] LABS: Blood Urea Nitrogen 18 mg/dL (6-20); Calcium 8.4 mg/dL (8.6-10.4); Carbon Dioxide 22 mmol/L (22-30); Chloride 105 mmol/L (96-108); Glomerular Filtration Rate 92; Glucose 81 mg/dL (70-105)
[2020-03-31 13:42] LABS: Basophils # (Auto) 0.11 K/mcL (0.00-0.20); Basophils % (Auto) 0.7 % (0.0-2.0); Eosinophils # (Auto) 0.05 K/mcL (0.00-0.70); Eosinophils % (Auto) 0.3 % (0.0-7.0); Hematocrit 43.5 % (41.0-55.0); Hemoglobin 14.4 g/dL (13.5-16.5); Lymphocytes # (Auto) 1.58 K/mcL (1.50-4.80); Lymphocytes % (Auto) 10.2 % (15.0-49.0); Mean Cell Volume 92.4 fL (80.0-100.0); Mean Corpuscular HGB Conc 33.1 g/dL (31.0-36.0); Mean Platelet Volume 10.9 fL (7.4-10.4); Monocytes # (Auto) 1.09 K/mcL (0.10-0.90); Neutrophils % (Auto) 81.8 % (38.0-78.0); Platelet Count 325 K/mcL (140-440); RBC 4.71 M/mcL (4.50-5.90); Red Cell Distribution Width 13.2 % (11.5-14.5); WBC 15.5 K/mcL (4.5-11.0)
[2020-03-31] MEDS: REMDESIVIR 100 MG in 0.9 % SODIUM CHLORIDE 250 ML IV SCH (14:45)
[2020-04-01 07:15] LABS: Basophils # (Auto) 0.03 K/mcL (0.00-0.20); Basophils % (Auto) 0.2 % (0.0-2.0); Eosinophils # (Auto) 0.15 K/mcL (0.00-0.70); Eosinophils % (Auto) 0.8 % (0.0-7.0); Hemoglobin 14.7 g/dL (13.5-16.5); Lymphocytes # (Auto) 2.21 K/mcL (1.50-4.80); Lymphocytes % (Auto) 11.2 % (15.0-49.0); Mean Platelet Volume 10.1 fL (7.4-10.4); Monocytes # (Auto) 1.62 K/mcL (0.10-0.90); Monocytes % (Auto) 8.2 % (1.0-12.0); Neutrophils % (Auto) 79.6 % (38.0-78.0); Platelet Count 361 K/mcL (140-440); RBC 4.76 M/mcL (4.50-5.90); Red Cell Distribution Width 12.6 % (11.5-14.5); WBC 19.8 K/mcL (4.5-11.0)
--- NOTE | 2020-04-01 08:24 | Internal Med Progress Note ---
SUBJECTIVE Subjective Patient information: Note initiated : 04/01/20 at 8:22 am Service Date, if different from initiated Date: [] Patient: Yuri Colbert a 59 y/o M admitted on 03/28/20 for Increasingly worse SOB. Chief Complaint: [] Interval history: History of present illness: Mr. Colbert is a 59 year old M Who presents to the ED with shortness of breath since Sunday, he first developed a cough about a week and a half ago. Shortness of breath has worsened every day since Sunday. Denies fevers. The symptoms have continued to wor sen. He was hypoxic in the mid 80s on oxygen when he first arrived in the ED. denies sick contacts. No history of COPD here other significant comorbidities other than history of hypertension and hyperlipidemia. Work-up in the ED showed a chest x-ray with bilateral infiltrates worse on the left. He was Covid positive. He was tachypneic and tachycardic. Requiring 3 L of oxygen in the ED with sats at 93%. Also found the ED mild hyponatremia. Elevated lactate of 2.9. And mild transaminitis. His only home medication is metoprolol which she did not take today. 03/29 Poor sleep last night. On 5 L oxygen mask this morning. However patient does feel better. He rates his cough is better and he says his shortness of breath is improved. Sodium is within normal limits today. Initial procalcitonin unremarkable. Afebrile. Continue holding on antibiotics and discontinue antiviral. 03/30 Patient was on 6 L of oxygen last night. However patient says he feels better and he feels his shortness of breath is improving. Also slept well. Has a minimal cough. Nurse was able to turn down 4 L this morning. 03/31 On 2 L of oxygen since yesterday afternoon. Patient continues to feel better. Occasional cough, shortness of breath improving review of Systems: denies headache/fever/chills/nausea/vomiting/chest or abdominal pain. Otherwise see above. Constitutional Vitals: Vital Signs Temp Pulse Resp BP Pulse Ox 97.6 F 70 22 125/99 94 04/01/20 07:16 04/01/20 07:16 04/01/20 07:16 04/01/20 07:16 04/01/20 07:16 Period Temp Pulse Resp BP Sys/Zaldivar Pulse Ox Last 24 Hr 97.1 F-97.7 F 70-89 20-28 103-137/77-99 92-97 Intake and Output 03/31/20 04/01/20 04/01/20 21:59 05:59 13:59 Intake Total 2049 150 Output Total 600 Balance 1450 150 Weight 113.534 kg Intake & Output: Intake & Output 03/31/20 04/01/20 04/01/20 21:59 05:59 13:59 Intake Total 2049 150 Output Total 600 Balance 1450 150 Weight 113.534 kg Intake: IV 250 Veklury 100 mg In Sodium 250 Chloride 0.9% 250 ml @ 500 mls/ hr IV Q24H [facility] Rx#:[id number] Oral 1800 150 Output: Void Amount 600 Other: Meal Breakfast Percent of Meal Consumed 100% Feeding Ability Independent # Voids 1 Exam: General: Alert, Awake, No acute Distress Eyes/N/T: EOMI, Head/Neck: neck supple, CV: RRR, 2/6 SM Pulm: b/l rhonchi/fine rales, no wheezing Abd: soft, nontender, +BS x4 Ext: no clubbing/cyanosis/edema Neuro: Alert, no focal deficits, moves all extremities, Skin: warm/dry OBJ DATA Labs CBC & Chem 7: 04/01/20 05:47 03/31/20 05:47 Labs: Abnormal Lab Results 04/01/20 03/31/20 03/31/20 05:47 05:47 05:47 WBC 19.8 H MPV Neut % (Auto) 79.6 H Lymph % (Auto) 11.2 L Miller # (Auto) 1.62 H Absolute Neutrophils 15.78 H BUN Calcium 8.4 L Ferritin 1704.0 H AST ALT Lactate Dehydrogenase Total Creatine Kinase C-Reactive Protein Procalcitonin 03/31/20 03/30/20 03/30/20 05:47 05:26 05:26 WBC 15.5 H MPV 10.9 H Neut % (Auto) 81.8 H Lymph % (Auto) 10.2 L Miller # (Auto) 1.09 H Absolute Neutrophils 12.70 H BUN 26 H Calcium Ferritin > 2000.0 H AST 40 H ALT 63 H Lactate Dehydrogenase 470 H Total Creatine Kinase C-Reactive Protein 2.80 H Procalcitonin 03/30/20 03/30/20 05:26 05:26 WBC MPV Neut % (Auto) Lymph % (Auto) Miller # (Auto) Absolute Neutrophils BUN Calcium Ferritin AST ALT Lactate Dehydrogenase Total Creatine Kinase 380 H C-Reactive Protein Procalcitonin 0.10 H Meds: Medications Acetaminophen (Tylenol) 650 mg PO Q6HP PRN PRN Reason: PAIN/FEVER > 101 Albuterol/Ipratropium (Combivent) 2 puff INH QIDP PRN PRN Reason: dyspnea Albuterol/Ipratropium (Combivent) 2 puff INH BID [facility] Last Admin: 03/31/20 21:23 Dose: 2 puff Documented by: Dexamethasone (Decadron) 6 mg PO DAILY [facility] Last Admin: 03/31/20 09:10 Dose: 6 mg Documented by: Enoxaparin Sodium (Lovenox) 40 mg SQ DAILY [facility] Last Admin: 03/31/20 09:10 Dose: 40 mg Documented by: Potassium Chloride 40 meq/ (Dextrose) 520 mls @ 130 mls/hr IV UD PRN PRN Reason: Potassium < 3 Magnesium Sulfate (Magnesium Sulfate) 2 gm in 50 mls @ 50 mls/hr IV UD PRN PRN Reason: Magnesium </= 1.6 REMDESIVIR 100 mg/ Sodium (Chloride) 250 mls @ 500 mls/hr IV Q24H [facility] Stop: 04/01/20 14:29 Last Infusion: 03/31/20 15:30 Dose: Infused Documented by: Azithromycin 500 mg/ Dextrose 250 mls @ 250 mls/hr IV Q24H [facility]; Protocol Stop: 04/01/20 11:59 Last Infusion: 03/31/20 10:15 Dose: Infused Documented by: Metoprolol Succinate (Toprol Xl) 100 mg PO DAILY [facility] Last Admin: 03/31/20 09:10 Dose: 100 mg Documented by: Ondansetron HCl (Zofran) 4 mg IV Q4HP PRN PRN Reason: Nausea And Vomiting Polyethylene Glycol (Miralax) 17 gm PO DAILYP PRN PRN Reason: Constipation Potassium Chloride (Kdur) 40 meq PO UD PRN PRN Reason: Potssium is 3-3.5 Potassium Chloride (Kdur) 40 meq PO UD PRN PRN Reason: Potassium < 3 Senna (Senokot) 2 tab PO DAILYP PRN PRN Reason: Constipation Sodium Chloride (Saline Flush) 10 ml IV Q8 [facility] Last Admin: 03/31/20 21:23 Dose: 10 ml Documented by: Zinc Sulfate (Zinc) 50 mg PO DAILY [facility] Last Admin: 03/31/20 09:10 Dose: 50 mg Documented by: ABG Interpretation ABG results: 03/28/20 17:13 ABG Methemoglobin 0 L VBG pH 7.43 H VBG pCO2 32.7 L VBG pO2 41.4 H VBG HCO3 21.1 L VBG Total CO2 22.1 L VBG O2 Saturation 74.7 H VBG Base Excess -2 A/P Narrative A/P Narrative: A: *COVID PNA: -RVP neg, crp improving, PCT low *Acute hypoxic respiratory failure: 2/2 above -down to 1L NC from 6L Oxymask *Lactic acidosis: 2/2 hypoxia *Hyponatremia: 2/2 above, resolved *Transaminitis, mild: 2/2 above, improving *mild elevated cpk: 2/2 above, improving *HTN/HLD: On Toprol at home *Obesity: *leukocytosis: suspect steroid but check diff and f/u in am, afebrile. P: -O2 support, wean as able -IS/Acapella, prn inhalers -Remdesivir/dexamethasone -daily self proning -monitor for need to start antibiotics - -ppx: Lovenox Full Code Time Spent With Patient Time: Total time spent is greater than 50% in coordination of care (as documented) at patient's floor/unit and/or counseling patient: QUALITY VTE Deep Vein Thrombosis/Pulmonary Embolism Present on Admission: No
[2020-04-01 08:33] LABS: Mean Cell Volume 88.2 fL (80.0-100.0)
[2020-04-01] MEDS: ZINC SULFATE 50 MG CAPSULE PO SCH (08:57)
[2020-04-01] MEDS: DEXAMETHASONE 4 MG TABLET PO SCH (08:57)
[2020-04-01] MEDS: ENOXAPARIN 40 MG/0.4 ML SYRINGE SQ SCH (08:58)
[2020-04-01] MEDS: METOPROLOL SUCCINATE 50 MG TAB.XL.24H PO SCH (08:58)
[2020-04-01] MEDS: 0.9 % SODIUM CHLORIDE 10 ML SYRINGE IV SCH (08:59)
[2020-04-01 09:00] LABS: Band Neutrophils % 5 % (0-10); Eosinophils % (Manual) 1 % (0-7); Lymphocytes % 14 % (15-49); Metamyelocytes % 4 %; Monocytes % (Manual) 8 % (1-12); Myelocytes % 1 %; Platelet Estimate NORMAL (Normal); RBC Morphology NORMAL (Normal); Segmented Neutrophils % 67 % (38-78)
[2020-04-01] MEDS: IPRATROPIUM/ALBUTEROL SULFATE 1 PUFF INHALER INH SCH (09:00)
[2020-04-01] MEDS: AZITHROMYCIN 500 MG in DEXTROSE 5% IN WATER 250 ML IV SCH (09:45)
[2020-04-01] MEDS: REMDESIVIR 100 MG in 0.9 % SODIUM CHLORIDE 250 ML IV SCH (11:48)
== END 2020-04-01 14:25 | disposition home or self-care (01) | DRG 177 ==
LOC: ED 16:17 → MEDSUR 20:15
PROVIDERS: ADMIT Internal Medicine; ATTEND Internal Medicine